=== PATIENT | male | born 1955 | race Caucasian/White ===

== ENCOUNTER 2016-08-27 20:33 | Emergency (ER) | payer OTHER ==
[~2016-08-27] VITALS: Ht 167.6 cm; Wt 77.1 kg
[2016-08-27 20:40] VITALS: BP 133/73
[2016-08-27] MEDS ORDERED: FLUORESCEIN 1MG EYE STRIP. ONE (21:17)
--- NOTE | 2016-08-27 21:34 | PHYS DOC ---
General Chief Complaint: EYE PROBLEMS Stated Complaint: EYE SWELLING Time Seen by MD: 21:11 Source: patient, family Problems: History of Present Illness Initial Comments Patient with for right upper eyelid swelling. Patient says it started on Monday has gradually been getting worse. He apparently went to an urgent care center in [facility] yesterday and was told he had some sort of eye infection. He wasn't told anything more specific. He is given a prescription for Keflex as well as erythromycin eye ointment. He says this seemed to be improving today, but over the last several hours and seems to gotten worse. He has pain in the area of the eyelid but no pain in the eye itself. He has no visual changes. There is no history of injury or trauma to the eye. He does wear reading glasses but no contacts. He has no chemical exposures to the eyes. He has no photophobia. He's had no fever chills URI symptoms or cough. There's no chest pain or shortness of breath. Patient was using warm compresses for this at home but was instructed to stop using them yesterday in urgent care. Other than as described he's been nothing at home for this and notes no factors that increase or decrease his symptoms. Patient's past medical history is otherwise unremarkable. He is a nonsmoker and nonuser of ethanol. Allergies: Coded Allergies: hydrocodone (Verified Allergy, Unknown, ITCHING, 03/09/16) oxycodone (Verified Allergy, Unknown, ITCHING, 03/09/16) Past Medical History Medical History: no pertinent history Social History Smoker: non-smoker Alcohol: none Review of Systems Constitutional: no symptoms reported EENTM: see HPI Respiratory: no symptoms reported Cardiovascular: no symptoms reported Skin: see HPI Physical Exam General Appearance: WD/WN, no apparent distress Eyes: right eye lid inflammation, bilateral eye EOMI, bilateral eye PERRL Ear, Nose, Throat: normal pharynx, other Neck: full range of motion, supple, normal inspection Neurologic/Psychiatric: alert, normal mood/affect, oriented x 3 Skin: normal color Comments Generally this is a well-developed well-nourished white male in no acute distress. Vitals are as noted. Pertinent findings on physical exam shows the right upper eyelid distinct erythematous and swollen, with the suggestion of focal swelling in the midst consistent with internal hordeolum. There is no pustule noted. There is a very small amount of exudative drainage the lateral canthus. The pupils themselves were equal reactive light and accommodation. There is no photophobia. There is no consensual photophobia. Fundi appear benign. Conjunctiva are clear bilaterally. There is no foreign body noted on the right lids. Forcing staining on the right is unremarkable. The overall appearance is consistent with an internal hordeolum of the upper lid. The ears and throat clear. He is awake alert oriented and cooperative. Remainder physical exam is clinically unremarkable. Orders, Labs, Meds Old charts note so prior ER visits for multiple contusions. I discussed with the patient is with a diagnosis of internal hordeolum. We'll go and get him started on some Septra in lieu of his Keflex. We will ask him to stop his Keflex. We'll give an initial dose tonight and prescription for morning. He really does okay with ibuprofen for pain and have asked him to continue. I reinforced the need for warm compresses. 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 He may certainly return to the ER sooner as needed if worsening anyway. He looks well, no acute discomfort or distress, okay for discharge home at this time. DRAGAN HANLEY MD Aug 27, 2016 21:34
[2016-08-27] MEDS ORDERED: SMZ/TMP 800/160MG TABLET. PO ONE (21:45)
== END 2016-08-27 21:55 | disposition home or self-care (01) ==
LOC: ER 20:33
DX: H00.011 Hordeolum externum right upper eyelid (principal); Z88.5 Allergy status to narcotic agent
CPT/HCPCS: 99283